=== PATIENT | female | born 1975 | race Two or more races ===

== ENCOUNTER 2023-12-23 21:10 | Emergency (ER) | payer SELFPAY ==
[~2023-12-23] VITALS: Ht 177.8 cm; Wt 54.4 kg
[2023-12-23 21:12] VITALS: BP 130/90
[2023-12-23 21:31] VITALS: O2SAT 99
== END 2023-12-23 21:31 | disposition home or self-care (01) ==
LOC: ER 21:16
DX: K13.0 Diseases of lips (principal); W18.30XA Fall on same level, unspecified, initial encounter; Y93.89 Activity, other specified; Y92.89 Other specified places as the place of occurrence of the external cause; Y99.8 Other external cause status